=== PATIENT | male | born 1995 | race African-American/Black ===

== ENCOUNTER 2017-04-07 10:46 | Emergency (ER) | payer SELFPAY ==
[2017-04-07] VITALS (8 sets, daily range): BP systolic 131–166; BP diastolic 76–88
[~2017-04-07] VITALS: Ht 175.3 cm; Wt 81.6 kg
--- NOTE | 2017-04-07 10:43 | Emergency Room Report ---
History of Present Illness General Source: Patient Present Illness HPI This is a 21-year-old male presented after bilateral hand numbness and chest discomfort. Patient had recently used methamphetamine. He reports having some difficulty with itching and sensation in both hands. Patient was noted be hyperventilating by EMS. Patient states last use was last night. He denies any numbness or weakness to his legs. Allergies: Coded Allergies: No Known Allergies (Unverified , 04/07/17) Patient History Past Medical History: see triage record Reviewed Nursing Documentation: PMH: Agreed, PSxH: Agreed Review of Systems All Other Systems: negative except mentioned in HPI Physical Exam Sp02 EP Interpretation: reviewed, normal General Appearance: normal inspection, well appearing, no apparent distress, alert, GCS 15, other - hyperventilating Head: atraumatic ENT: normal ENT inspection, hearing grossly normal, normal voice Neck: normal inspection, full range of motion, supple, no bony tend Respiratory: normal inspection, lungs clear, normal breath sounds, no respiratory distress, no retraction, no wheezing Cardiovascular #1: no edema, tachycardia Gastrointestinal: normal inspection, normal bowel sounds, non tender, soft, no guarding, no hernia Genitourinary: no CVA tenderness Musculoskeletal: normal inspection, back normal, normal range of motion Neurologic: normal inspection, alert, oriented x3, responsive, defense attorney III-XII nml as tested, speech normal Psychiatric: normal inspection, judgement/insight normal, mood/affect normal Skin: normal inspection, normal color, no rash Medical Decision Making Diagnostic Impression: Primary Impression: Anxiety Additional Impression: Substance abuse ER Course Patient presented for bilateral arm numbness. Differential diagnosis included was not limited to hyperventilation, aortic dissection, myocardial infarction and among others Because of complexity of patient's case laboratory testing and imaging studies were ordered.Patient was given IV Ativan for anxiety and agitation. Patient given Ativan and Haldol for anxiety. The patient was noted to have a recent use of methamphetamine. EKG interpreted by me showed sinus tachycardia without acute ST or T wave changes. The patient was given IV fluids. He was noted to have improvement in his tachycardia as well as his anxiety after medications. The patient is advised to follow up with primary care doctor in 1-2 days. Patient is advised to return if any worsening condition or if any changes in status that are concerning. Labs Test 04/07/17 10:53 04/07/17 11:30 White Blood Count 10.2 K/UL (4.8-10.8) Red Blood Count 5.29 M/UL (4.70-6.10) Hemoglobin 14.0 G/DL (14.2-18.0) Hematocrit 43.4 % (42.0-52.0) Mean Corpuscular Volume 82 FL (80-99) Mean Corpuscular Hemoglobin 26.4 PG (27.0-31.0) Mean Corpuscular Hemoglobin Concent 32.2 G/DL (32.0-36.0) Red Cell Distribution Width 11.7 % (11.6-14.8) Platelet Count 208 K/UL (150-450) Mean Platelet Volume 8.2 FL (6.5-10.1) Neutrophils (%) (Auto) 69.8 % (45.0-75.0) Lymphocytes (%) (Auto) 16.6 % (20.0-45.0) Monocytes (%) (Auto) 12.1 % (1.0-10.0) Eosinophils (%) (Auto) 0.1 % (0.0-3.0) Basophils (%) (Auto) 1.4 % (0.0-2.0) Sodium Level 138 MMOL/L (136-145) Potassium Level 3.0 MMOL/L (3.5-5.1) Chloride Level 100 MMOL/L (98-107) Carbon Dioxide Level 20 MMOL/L (21-32) Anion Gap 18 mmol/L (5-15) Blood Urea Nitrogen 16 mg/dL (7-18) Creatinine 1.4 MG/DL (0.55-1.30) Estimat Glomerular Filtration Rate > 60 mL/min (>60) Glucose Level 112 MG/DL (74-106) Calcium Level 10.0 MG/DL (8.5-10.1) Total Bilirubin 1.9 MG/DL (0.2-1.0) Direct Bilirubin 0.3 MG/DL (0.0-0.3) Aspartate Amino Transf (AST/SGOT) 34 U/L (15-37) Alanine Aminotransferase (ALT/SGPT) 23 U/L (12-78) Alkaline Phosphatase 55 U/L (46-116) Troponin I < 0.017 ng/mL (0.000-0.056) Total Protein 8.3 G/DL (6.4-8.2) Albumin 4.4 G/DL (3.4-5.0) Globulin 3.9 g/dL Albumin/Globulin Ratio 1.1 (1.0-2.7) Salicylates Level < 0.2 ug/mL (2.8-20) Acetaminophen Level < 2 MCG/ML (10-30) Serum Alcohol < 3 mg/dL Urine Opiates Screen Negative (NEGATIVE) Urine Barbiturates Screen Negative (NEGATIVE) Phencyclidine (PCP) Screen Negative (NEGATIVE) Urine Amphetamines Screen Positive (NEGATIVE) Urine Benzodiazepines Screen Negative (NEGATIVE) Urine Cocaine Screen Negative (NEGATIVE) Urine Marijuana (THC) Screen Positive (NEGATIVE) EKG Diagnostic Results Rate: tachycardiac Rhythm: NSR ST Segments: no acute changes Status: improved Disposition: HOME, SELF-CARE Condition: Stable [place] Apr 07, 2017 10:43
[~2017-04-07 10:46] MED LIST: LORazepam Inj 2mg/ml 1ml IV ONE; NKM; Sodium Chloride 500ML 500 ML IV ONE
[2017-04-07] MEDS ORDERED: Tubing IV Cassette IV ONE (10:55)
[2017-04-07 11:12] LABS: BASOPHILS % (AUTO) 1.4 % (0.0-2.0); EOSINOPHILS % (AUTO) 0.1 % (0.0-3.0); LYMPHOCYTES % (AUTO) 16.6 % (20.0-45.0); MEAN CORPUSCULAR HEMOGLOBIN 26.4 PG (27.0-31.0); MEAN CORPUSCULAR HGB CONC 32.2 G/DL (32.0-36.0); MEAN CORPUSCULAR VOLUME 82 FL (80-99); MEAN PLATELET VOLUME 8.2 FL (6.5-10.1); MONOCYTES % (AUTO) 12.1 % (1.0-10.0); NEUTROPHILS % (AUTO) 69.8 % (45.0-75.0); PLATELET COUNT 208 K/UL (150-450); RED BLOOD COUNT 5.29 M/UL (4.70-6.10); RED CELL DISTRIBUTION WIDTH 11.7 % (11.6-14.8); WHITE BLOOD COUNT 10.2 K/UL (4.8-10.8)
[2017-04-07 11:28] LABS: ANION GAP 18 mmol/L (5-15); CARBON DIOXIDE 20 MMOL/L (21-32); CHLORIDE 100 MMOL/L (98-107); CREATININE 1.4 MG/DL (0.55-1.30); GLOMERULAR FILTRATION RATE > 60 mL/min (>60); SODIUM 138 MMOL/L (136-145)
[2017-04-07] MEDS ORDERED: LORazepam Inj 2mg/ml 1ml IV ONE (11:30)
[2017-04-07 11:35] LABS: ALANINE AMINOTRANSFERASE 23 U/L (12-78); ALBUMIN/GLOBULIN RATIO 1.1 (1.0-2.7); ALCOHOL < 3 mg/dL; ASPARTATE AMINO TRANSFERASE 34 U/L (15-37); TOTAL PROTEIN 8.3 G/DL (6.4-8.2)
[2017-04-07 11:36] LABS: ACETAMINOPHEN < 2 MCG/ML (10-30); BILIRUBIN,DIRECT 0.3 MG/DL (0.0-0.3)
[2017-04-07] MEDS ORDERED: Haloperidol 5mg/ml Inj IM ONE (13:15)
--- NOTE | 2017-04-15 17:24 | Cardiology Report ---
APPROVED REPORT EKG Measurement Heart [id number] Normal sinus rhythm Normal ECG
== END 2017-04-07 19:14 | disposition home or self-care (01) ==
LOC: EDBD 10:46 → EMR 11:27
DX: F41.9 Anxiety disorder, unspecified (principal); F15.10 Other stimulant abuse, uncomplicated; R07.89 Other chest pain; R20.0 Anesthesia of skin
CPT/HCPCS: 36415; 80053; 80307; 82248; 84484; 85025; 93005; 96361; 96372; 96374; 99284; G0480; J1630; J7040; 80329; J8499

== ENCOUNTER 2017-04-08 17:04 | Emergency (ER) | payer OTHER ==
[~2017-04-08] VITALS: Ht 185.4 cm; Wt 86.2 kg
[~2017-04-08 17:04] MED LIST changes: -LORazepam Inj 2mg/ml 1ml IV ONE; -Sodium Chloride 500ML 500 ML IV ONE
[2017-04-08 17:09] VITALS: BP 127/83
--- NOTE | 2017-04-08 17:27 | Emergency Room Report ---
History of Present Illness General Chief Complaint: Chest Pain Source: Patient Present Illness HPI 21-year-old male with no sig pmhx, p/w chest pain for 3. Chest pain started while after doing methamphetamine (last used 3 days ago). Localized to substernal area, no radiation to back or other areas, sharp in nature, gradual in onset, lasts a few seconds. 2-3 episodes/DAY. Occurred on exertion and rest. Denies SOB. Currently denies palpitations, diaphoresis, n/v. Patient is currently chest pain-free This is the first occurrence of chest pain. Denies fever, chills, cough, abd pain, recent viral illness. Denies trauma. Denies cardiac history, or family history of cardiac disease at a young age. Denies history of PE/DVT Allergies: Coded Allergies: No Known Allergies (Unverified , 04/07/17) Patient History Past Medical History: see triage record Past Surgical History: none Pertinent Family History: none Reviewed Nursing Documentation: PMH: Agreed, PSxH: Agreed Nursing Documentation-PMH Past Medical History: No History, Except For Review of Systems All Other Systems: negative except mentioned in HPI Physical Exam Vital Signs Date Time Temp Pulse Resp B/P (MAP) Pulse Ox O2 Delivery O2 Flow Rate FiO2 04/08/17 16:59 98.4 101 16 125/83 98 Room Air Sp02 EP Interpretation: reviewed, normal General Appearance: normal inspection, well appearing, no apparent distress, alert, GCS 15, non-toxic Head: normocephalic, atraumatic Eyes: bilateral eye normal inspection, bilateral eye PERRL, bilateral eye EOMI ENT: normal ENT inspection, normal pharynx, normal voice, moist mucus membranes Neck: normal inspection, full range of motion, supple Respiratory: normal inspection, lungs clear, normal breath sounds, no respiratory distress, no retraction, no wheezing, speaking full sentences, chest symmetrical Cardiovascular #1: normal inspection, regular rate, rhythm, no edema, normal capillary refill Cardiovascular #2: 2+ radial (R), 2+ radial (L) Gastrointestinal: normal inspection, non tender, soft, non-distended, no guarding Musculoskeletal: normal inspection, back normal, normal range of motion, non- tender Neurologic: normal inspection, alert, oriented x3, responsive, motor strength/ tone normal, sensory intact, normal gait, speech normal Psychiatric: normal inspection, judgement/insight normal, memory normal Skin: normal inspection, normal color, no rash, warm/dry, well hydrated, normal turgor Medical Decision Making Diagnostic Impression: Primary Impression: Chest pain Additional Impression: Methamphetamine use ER Course 21-year-old male with no sig pmhx p/w chest pain DDX: Musculoskeletal CP/costochondritis vs. pneumothorax vs. gastritis/GERD versus drug-induced PE less likely given history and physical examination, not hypoxic/tachycardic, no risk factors, PERC negative. ACS less likely given age/history Plan: NSAIDs, EKG, CXR Anticipate DC home as patient appears clinically well. And is chest pain-free ER course: Patient was treated NSAIDs with improvement of pain. Patient remains well appearing in ED. Disposition: Patient will be discharged to home Strict precautions discussed with patient on when to emergently return to the ED : this includes worsening/severe chest pain, palpitations, shortness of breath, syncopal episodes, fever or chills, which may indicate severe illness. Patient verbalized understanding. Patient instructed to follow up with their PMD within the next 2 days. Patient agrees with plan. Please note that this Emergency Department Report was dictated using [employer] welt end technology software, occasionally this can lead to erroneous entry secondary to interpretation by the dictation equipment. EKG Diagnostic Results EP Interpretation: Yes Rate: normal Rhythm: NSR ST Segments: No acute changes ASA given to patient: no Rhythm Strip EP Interpretation: Yes Rate: 83 Rhythm: NSR, no PVCs, no ectopy Chest X-ray CXR: Ordered: Yes 1 view Indication: Chest pain EP interpretation: Yes Interpretation: No consolidation, no effusion, no PTX, no acute cardiopulmonary disease Impression: No acute disease Electronically signed by Kina Sanchez MD Last Vital Signs Date Time Temp Pulse Resp B/P (MAP) Pulse Ox O2 Delivery O2 Flow Rate FiO2 04/08/17 17:11 88 20 Room Air 04/08/17 17:09 98.4 127/83 100 Disposition: HOME, SELF-CARE Condition: Improved Patient Instructions: Nonspecific Chest Pain Kina Sanchez M.D. Apr 08, 2017 17:27
[2017-04-08 18:00] VITALS: BP 135/73
[2017-04-09] MEDS ORDERED: ALPRAZOLAM0.25 MG ORAL (06:00)
--- NOTE | 2017-04-09 10:04 | Diagnostic Imaging Report ---
Indication: PAIN Technique: XRAY CHEST 1 V Comparison: None. Findings: The cardiomediastinal silhouette is normal. The lungs are clear. There is no evidence of pleural fluid. The bones are unremarkable. Impression: Normal chest.
--- NOTE | 2017-04-18 17:58 | Cardiology Report ---
APPROVED REPORT EKG Measurement Heart [id number] Normal sinus rhythm Nonspecific T wave abnormality Abnormal ECG
== END 2017-04-08 18:00 | disposition home or self-care (01) ==
LOC: EDBD 17:04 → EMR 17:30
DX: R07.89 Other chest pain (principal); F15.90 Other stimulant use, unspecified, uncomplicated
CPT/HCPCS: 71010; 93005; 99283

== ENCOUNTER 2017-04-09 04:56 | Emergency (ER) | payer SELFPAY ==
[~2017-04-09] VITALS: Ht 175.3 cm; Wt 83.9 kg
[2017-04-09 04:56] VITALS: BP 138/71
[2017-04-09] MEDS ORDERED: LORazepam 1mg tab ORAL ONE (05:00)
[2017-04-09] MEDS ORDERED: ALPRAZOLAM0.25 MG ORAL (06:00)
[2017-04-09 06:03] VITALS: BP 138/71
--- NOTE | 2017-04-09 06:16 | Emergency Room Report ---
History of Present Illness General Chief Complaint: Substance Abuse Source: Patient Present Illness HPI 21-year-old male presents ED for evaluation. Patient brought in by EMS. Patient states he feels very anxious and is unable to sleep. States he used methamphetamines 3 days ago. He was seen in the ER twice since he used meth. States he feels very anxious. Denies any chest pain or shortness of breath. Denies any other drug use. Denies any suicidal or homicidal ideation. No other aggravating relieving factors. Denies any other associated symptoms Allergies: Coded Allergies: No Known Allergies (Unverified , 04/07/17) Patient History Past Medical History: none Past Surgical History: none Pertinent Family History: none Social History: Denies: smoking, alcohol use, drug use Immunizations: UTD Reviewed Nursing Documentation: PMH: Agreed, PSxH: Agreed Nursing Documentation-PMH Past Medical History: No Stated History Review of Systems All Other Systems: negative except mentioned in HPI Physical Exam Vital Signs Date Time Temp Pulse Resp B/P (MAP) Pulse Ox O2 Delivery O2 Flow Rate FiO2 04/09/17 04:52 92 14 138/71 100 Room Air 04/09/17 04:56 98.2 Sp02 EP Interpretation: reviewed, normal General Appearance: no apparent distress, alert, GCS 15, non-toxic Head: normocephalic, atraumatic Eyes: bilateral eye normal inspection, bilateral eye PERRL ENT: hearing grossly normal, normal pharynx, no angioedema, normal voice Neck: full range of motion, supple/symm/no masses Respiratory: chest non-tender, lungs clear, normal breath sounds, speaking full sentences Cardiovascular #1: regular rate, rhythm, no edema Cardiovascular #2: 2+ carotid (R), 2+ carotid (L), 2+ radial (R), 2+ radial (L) , 2+ dorsalis pedis (R), 2+ dorsalis pedis (L) Gastrointestinal: normal bowel sounds, non tender, soft, non-distended, no guarding, no rebound Rectal: deferred Genitourinary: normal inspection, no CVA tenderness Musculoskeletal: back normal, gait/station normal, normal range of motion, non- tender Neurologic: alert, oriented x3, responsive, motor strength/tone normal, sensory intact, speech normal Psychiatric: judgement/insight normal, memory normal, anxious Reflexes: 3+ bicep (R), 3+ bicep (L), 3+ tricep (R), 3+ tricep (L), 3+ knee (R) , 3+ knee (L) Skin: normal color, no rash, warm/dry, well hydrated Lymphatic: no adenopathy Medical Decision Making Diagnostic Impression: Primary Impression: Substance abuse Additional Impression: Anxiety ER Course Hospital Course 21-year-old male presents to ED feeling anxious after methamphetamine use Clinical course Patient placed on stretcher. After initial history and physical I reviewed EMR. Patient had been here twice since he used methamphetamines. On the first visit he did have blood work which was unremarkable. I see no reason to repeat blood work at this time. patient showing no signs of distress with stable vitals Patient given Ativan in ED. Feeling better and wishes to be discharged Diagnosis - substance abuse, anxiety stable and discharged to home with Rx Xanax. Followup with PMD. Return to ED if symptoms recur or worsen Last Vital Signs Date Time Temp Pulse Resp B/P (MAP) Pulse Ox O2 Delivery O2 Flow Rate FiO2 04/09/17 06:03 98.2 101 18 138/71 99 Room Air Status: improved Disposition: HOME, SELF-CARE Condition: Stable Scripts Alprazolam* (XANAX*) 0.25 Mg Tablet 0.25 MG ORAL TID Y for For Anxiety, #5 TAB Prov: LOYD RICHMOND M.D. 04/09/17 Referrals: NOT CHOSEN IPA/,REFERRING (PCP) Patient Instructions: Stimulant Use Disorder-Methamphetamines LOYD RICHMOND M.D. Apr 09, 2017 06:16
== END 2017-04-09 06:03 | disposition home or self-care (01) ==
LOC: EDBD 04:56 → EMR 05:05
DX: F41.9 Anxiety disorder, unspecified (principal); F15.10 Other stimulant abuse, uncomplicated
CPT/HCPCS: 99283

== ENCOUNTER 2017-05-23 16:51 | Emergency (ER) | payer SELFPAY ==
[~2017-05-23 16:51] MED LIST changes: +ALPRAZOLAM0.25 MG ORAL
--- NOTE | 2017-05-23 17:19 | Emergency Room Report ---
History of Present Illness General Source: EMS Present Illness HPI The patient is a 24 old male brought in by EMS for possible wrist injury. He told them that he was playing basketball and fell onto his wrist. The patient appeared to be agitated somewhat and left without being seen Medical Decision Making PA Attestation Dr. Peoples is my supervising physician. Patient management was discussed with my supervising physician ER Course The patient is a 24 old male brought in by EMS for possible wrist injury. He told them that he was playing basketball and fell onto his wrist. The patient appeared to be agitated somewhat and left without being seen eloped from waiting room Status: unchanged Disposition: LEFT W/OUT BEING SEEN Condition: Unknown DEE LOYOLA May 23, 2017 17:19
[2017-05-24] MEDS ORDERED: IBUPROFEN600 MG ORAL (03:54)
== END 2017-05-23 17:20 | disposition left against medical advice (07) ==
LOC: EDBD → EMR 17:19 → MERGE 17:19 → EMR 17:20
DX: S62.102A Fracture of unspecified carpal bone, left wrist, initial encounter for closed fracture (principal); Z53.21 Procedure and treatment not carried out due to patient leaving prior to being seen by health care provider

== ENCOUNTER 2017-05-24 03:05 | Emergency (ER) | payer SELFPAY ==
[~2017-05-24] VITALS: Ht 182.9 cm; Wt 88.5 kg
[2017-05-24 03:06] VITALS: BP 148/93
[2017-05-24] MEDS ORDERED: IBUPROFEN600 MG ORAL (03:54)
[2017-05-24 04:02] VITALS: BP 148/93
--- NOTE | 2017-05-24 08:43 | Emergency Room Report ---
History of Present Illness General Chief Complaint: Upper Extremity Injury Source: Patient, EMS Present Illness Allergies: Coded Allergies: No Known Allergies (Unverified , 04/07/17) Nursing Documentation-H Past Medical History: No History, Except For History Of Psychiatric Problem: Yes - Anxiety, Depression Physical Exam Vital Signs Date Time Temp Pulse Resp B/P (MAP) Pulse Ox O2 Delivery O2 Flow Rate FiO2 05/24/17 03:06 98.1 73 16 148/93 98 Room Air Medical Decision Making Diagnostic Impression: Primary Impression: Wrist injury ER Course Please note that we received a phone call this morning regarding wrist fracture/ perilunate dislocation Patient was called at the phone number provided however there was no response We did attempt to leave a message however there was no possibility of leaving a message Patient was called onto further occasions And at this time had x-ray discrepancy form mailed for further attempts of contact Last Vital Signs Date Time Temp Pulse Resp B/P (MAP) Pulse Ox O2 Delivery O2 Flow Rate FiO2 05/24/17 04:02 98.1 76 16 148/93 98 Room Air Disposition: HOME, SELF-CARE Condition: Stable Scripts Ibuprofen* (MOTRIN*) 600 Mg Tablet 600 MG ORAL Q8H Y for For Pain, #30 TAB 0 Refills Prov: LOYD RICHMOND M.D. 05/24/17 Patient Instructions: Wrist Pain, [id number] BRANDIE CHILDERS D.O. May 24, 2017 08:43
--- NOTE | 2017-05-25 08:10 | Emergency Room Report ---
History of Present Illness General Chief Complaint: Upper Extremity Injury Source: Patient, EMS Present Illness HPI 21-year-old male presents to ED for evaluation. Patient brought in by EMS complaining of right wrist pain. Patient states that he tried to dunk the basketball and hurt his wrist yesterday. He states he brought in by EMS yesterday here but left prior to being seen. Patient states he is here because the wrist is hurting and swelling. Pain is throbbing, 8/10, nonradiating. Denies any other injuries. No other aggravating or leading factors. Denies any other associated symptoms Allergies: Coded Allergies: No Known Allergies (Unverified , 04/07/17) Patient History Past Medical History: psych hx Past Surgical History: none Pertinent Family History: none Social History: Reports: drug use, Denies: smoking, alcohol use Immunizations: UTD Reviewed Nursing Documentation: PMH: Agreed, PSxH: Agreed Nursing Documentation-PMH Past Medical History: No History, Except For History Of Psychiatric Problem: Yes - Anxiety, Depression Review of Systems All Other Systems: negative except mentioned in HPI Physical Exam Vital Signs Date Time Temp Pulse Resp B/P (MAP) Pulse Ox O2 Delivery O2 Flow Rate FiO2 05/24/17 03:06 98.1 73 16 148/93 98 Room Air Sp02 EP Interpretation: reviewed, normal General Appearance: no apparent distress, alert, GCS 15, non-toxic Head: normocephalic Eyes: bilateral eye normal inspection, bilateral eye PERRL ENT: normal ENT inspection Neck: normal inspection Respiratory: normal inspection Cardiovascular #1: normal inspection Gastrointestinal: normal inspection Rectal: deferred Genitourinary: no CVA tenderness Musculoskeletal: swelling - R wrist Neurologic: alert, oriented x3, responsive, motor strength/tone normal, sensory intact, speech normal Psychiatric: normal inspection Skin: normal inspection Lymphatic: normal inspection Procedures Splinting Splinting : Consent: Verbal Pre-Made Type: velcro Splint: wrist Pre-Proc Neuro Vasc Exam: normal Post-Proc Neuro Vasc Exam: normal Patient Tolerated: Well Complications: None Medical Decision Making Diagnostic Impression: Primary Impression: Wrist injury Qualified Codes: S69.91XA - Unspecified injury of right wrist, hand and finger (s), initial encounter ER Course Hospital Course 21-year-old M presents to ED complaining of R wrist pain/swelling. Differential diagnoses include: Fracture, dislocation, sprain, contusion Clinical course Patient placed on stretcher. After initial history and physical, I ordered Xrays of R hand/wrist I did not identify an obvious fracture however given the swelling and pain to place a wrist splint Patient states he came earlier yesterday but there is no medical records for that visit. Patient states he used a different name Gray Alfaro. 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 apply ice, keep elevated. weight bear as tolerated. Followup with PMD. Return to ED if symptoms recur or worsen Last Vital Signs Date Time Temp Pulse Resp B/P (MAP) Pulse Ox O2 Delivery O2 Flow Rate FiO2 05/24/17 04:02 98.1 76 16 148/93 98 Room Air Status: improved Disposition: HOME, SELF-CARE Condition: Stable Scripts Ibuprofen* (MOTRIN*) 600 Mg Tablet 600 MG ORAL Q8H Y for For Pain, #30 TAB 0 Refills Prov: LOYD RICHMOND M.D. 05/24/17 Patient Instructions: Wrist Pain, [id number] LOYD RICHMOND M.D. May 25, 2017 08:10
--- NOTE | 2017-05-26 16:05 | Diagnostic Imaging Report ---
Indication: Right hand pain Technique: Right hand 3 views Comparison: None Findings: There is an apparent perilunate dislocation with dorsal displacement of the capitate from the lunate. Soft tissue swelling of the wrist is seen. Small carpal osseous fragments or avulsions cannot be excluded. Impression: Perilunate dislocation with dorsal displacement of the capitate and midcarpal row from the lunate. Soft tissue swelling. CT may be obtained for further characterization. Findings discussed with Dr. Gonzalez at 0820 hours by phone.
== END 2017-05-24 04:02 | disposition home or self-care (01) ==
LOC: EDBD → EDUNIT# 03:05 → EDBD 03:05 → EMR 03:18
DX: S69.91XA Unspecified injury of right wrist, hand and finger(s), initial encounter (principal); X58.XXXA Exposure to other specified factors, initial encounter; Y93.67 Activity, basketball; Y99.9 Unspecified external cause status; M25.531 Pain in right wrist; F41.8 Other specified anxiety disorders; F32.9 Major depressive disorder, single episode, unspecified
CPT/HCPCS: 99283

== ENCOUNTER 2017-06-21 16:38 | Emergency (ER) | payer OTHER ==
[~2017-06-21] VITALS: Ht 182.9 cm; Wt 81.6 kg
[~2017-06-21 16:38] MED LIST changes: +IBUPROFEN600 MG ORAL
--- NOTE | 2017-06-21 17:21 | Emergency Room Report ---
History of Present Illness General Chief Complaint: Upper Extremity Injury Source: Patient Present Illness HPI 21 yo male patient presents to ER complaining of right wrist pain. Patient was previously seen in ER in May for similar complaint. Patient reports he has not been wearing his wrist splint. Patient states he did not followup with PCP or primary care provider. Patient reports pain with movement. Patient reports being told by physician "at [facility]" to report to ER for repeat x -ray. Patient is a poor historian. Patient denies fever, chest pain, SOB. Patient was seen in ER for wrist pain in May 2017; following discharged patient was previously attempted to be called by ER doctor to inform of dislocation; at that time ER physician was unable to make contact with patient by phone. Allergies: Coded Allergies: No Known Allergies (Unverified , 04/07/17) Patient History Past Medical History: see triage record Pertinent Family History: unable to obtain Social History: Reports: smoking Reviewed Nursing Documentation: PMH: Agreed, PSxH: Agreed Nursing Documentation-PMH Past Medical History: No Stated History Review of Systems All Other Systems: negative except mentioned in HPI Physical Exam Vital Signs Date Time Temp Pulse Resp B/P (MAP) Pulse Ox O2 Delivery O2 Flow Rate FiO2 06/21/17 16:55 98.1 76 19 139/74 96 Room Air Sp02 EP Interpretation: reviewed, normal General Appearance: no apparent distress, alert, GCS 15, non-toxic Head: normocephalic, atraumatic Eyes: bilateral eye normal inspection, bilateral eye PERRL ENT: hearing grossly normal, normal pharynx, no angioedema, normal voice Neck: full range of motion, supple/symm/no masses Respiratory: chest non-tender, lungs clear, normal breath sounds, speaking full sentences Cardiovascular #1: regular rate, rhythm, no edema Musculoskeletal: back normal, digits/nails normal, gait/station normal, non- tender, decreased range of motion - right wrist extension and flexion, swelling - right wrist, other - deformity noted on volar aspect of right wrist, tender - right wrist Neurologic: alert, oriented x3, responsive, motor strength/tone normal, sensory intact, speech normal Psychiatric: depressed affect Skin: normal color, no rash, warm/dry, well hydrated Medical Decision Making PA Attestation Dr. Sanchez is my supervising Physician whom patient management has been discussed with. Diagnostic Impression: Primary Impression: Closed perilunate dislocation ER Course Pt. presents to the ED c/o right wrist pain. Ddx considered but are not limited to fracture, sprain, strain, contusion, dislocation. Vital signs: are WNL, pt. is afebrile ORDERS: An X-ray of the right wrist was ordered. ED INTERVENTIONS: Motrin provided for pain. Right wrist splinted. The affected wrist was checked afterwards by me showing good alignment and support with distal neurovascular functioning intact. Patient instructed not to remove wrist splint. Patient reports understanding and agreement. 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 Patient sleeping, in no acute distress. 0700PM XRAY results: Evidence of right wrist fracture-dislocation with associated soft tissue swelling about the wrist. Moderately displaced fracture traverses the waist of scaphoid. Dorsal perilunate carpal dislocation. Discuss results of x-ray with patient. Consult with Dr. Sanchez who spoke with orthopedic physician senior online marketing manager; orthopedist states not to reduce dislocation in ER, patient will require surgery with ortho hand specialist. Patient instructed to follow with orthopedic hand specialist in 1-2 days [place] [facility] [place] Patient provided with contact information and directions for orthopedic doctors and clinics. Patient reports understanding and agreement to treatment plan. States he will followup with orthopedist today and tomorrow to schedule appointment. DISCHARGE: -Rx provided for Ibuprofen for pain symptoms. At this time pt. is stable for d/c to home. Will provide printed patient care instructions, and any necessary prescriptions. Care plan and follow up instructions have been discussed with the patient prior to discharge. Patient instructed on RICE method: rest, ice, compression, elevation. Patient instructed to NWB. Take medications as directed. Patient questions asked and answered. ER precautions given, patient instructed to return to ER immediately for any new or worsening of symptoms. Other X-Ray Diagnostic Results Other X-Ray Diagnostic Results : X-Ray ordered: Right wrist # of Views/Limited Vs Complete: 3 View Indication: Pain EP Interpretation: Yes PA Xray: Interpretation reviewed, by supervising MD, and agrees with findings. Interpretation: no soft tissue swelling Impression: Other - Evidence of right wrist fracture-dislocation with associated soft tissue swelling about the wrist. Moderately displaced fracture traverses the waist of scaphoid. Dorsal perilunate carpal dislocation. PA Scribe Text Benjamín Frausto PA-C Last Vital Signs Date Time Temp Pulse Resp B/P (MAP) Pulse Ox O2 Delivery O2 Flow Rate FiO2 06/21/17 16:55 98.1 76 19 139/74 96 Room Air Disposition: HOME, SELF-CARE Condition: Stable Scripts Ibuprofen* (MOTRIN*) 600 Mg Tablet 600 MG ORAL Q8H Y for For Pain, #30 TAB 0 Refills Prov: Luis Frausto 06/21/17 Patient Instructions: Wrist Dislocation, Lunate-[facility]Med Additional Instructions: Patient instructed to follow up with hand orthopedics in 1-2 days. Injury requires surgery. Wear splint. Patient instructed on RICE method: rest, ice, compression, elevation. Patient instructed to WBAT. Take medications as directed. Patient questions asked and answered. ER precautions given, patient instructed to return to ER immediately for any new or worsening of symptoms. Dr. Samaria Floyd [address], [place], [place] [id number] [facility] [address] [place] [address] Luis Frausto Jun 21, 2017 17:21
[2017-06-21] MEDS ORDERED: IBUPROFEN600 MG ORAL (17:43)
[2017-06-21 21:00] VITALS: BP 126/78
[2017-06-21 21:30] VITALS: BP 126/78
--- NOTE | 2017-06-22 11:49 | Diagnostic Imaging Report ---
Clinical Indication:Reason For Exam: PAIN Technique: 3 views of the left wrist Comparison: None Findings: There is a fracture of the scaphoid waist. There there is dorsal dislocation and overriding of the distal carpal row relative the proximal carpal row. No other fractures are demonstrated. Impression: Positive for scaphoid fracture Positive for dorsal carpal dislocation and overriding This agrees with the preliminary interpretation provided overnight by [facility].
== END 2017-06-21 21:30 | disposition home or self-care (01) ==
LOC: EMR 18:44 → EDBD 18:44 → EMR 21:30
DX: S63.095A Other dislocation of left wrist and hand, initial encounter (principal); X58.XXXA Exposure to other specified factors, initial encounter; Y92.9 Unspecified place or not applicable
CPT/HCPCS: 99283

== ENCOUNTER 2017-08-03 09:35 | Emergency (ER) | payer OTHER ==
[~2017-08-03] VITALS: Ht 182.9 cm; Wt 81.6 kg
--- NOTE | 2017-08-03 09:45 | Emergency Room Report ---
History of Present Illness General Chief Complaint: Pain Source: Patient, EMS Present Illness HPI Patient is a 22-year-old male brought in by EMS after increased right wrist pain. Patient had recent surgery at [facility] for scaphoid fracture and perilunate dislocation. Patient was noted to have been in a splint. He reported having some pain to the hand. He denied any recent trauma. Patient was noted to have nonintact splint. Allergies: Coded Allergies: No Known Allergies (Unverified , 04/07/17) Patient History Reviewed Nursing Documentation: PMH: Agreed, PSxH: Agreed Nursing Documentation-PMH Past Medical History: No History, Except For History Of Psychiatric Problem: Yes - ANXIETY Review of Systems All Other Systems: negative except mentioned in HPI Physical Exam Vital Signs Date Time Temp Pulse Resp B/P (MAP) Pulse Ox O2 Delivery O2 Flow Rate FiO2 08/03/17 09:33 98.6 100 16 165/80 99 Room Air 98.6 General Appearance: well appearing, no apparent distress, alert, GCS 15 Head: normocephalic, atraumatic ENT: hearing grossly normal, normal voice Neck: full range of motion, supple Respiratory: no respiratory distress, speaking full sentences Musculoskeletal: no calf tenderness, other - kwires present, postsurgical changes Neurologic: normal inspection, alert, oriented x3, normal gait Psychiatric: mood/affect normal Skin: no rash Medical Decision Making Diagnostic Impression: Primary Impression: Encounter for post surgical wound check ER Course Patient presented for wrist pain. Differential diagnosis included was not limited to fracture, dislocation, osteomyelitis, sprain among others. X-ray imaging of the right wrist was ordered.X-ray imaging read by radiologist showed postsurgical changes. Patient was advised follow-up with [facility] for recheck the due to previous surgery there. New splint was placed. Last Vital Signs Date Time Temp Pulse Resp B/P (MAP) Pulse Ox O2 Delivery O2 Flow Rate FiO2 08/03/17 09:33 98.6 100 16 165/80 99 Room Air 98.6 Status: improved Disposition: HOME, SELF-CARE Condition: Stable Scripts Ibuprofen* (MOTRIN*) 600 Mg Tablet 600 MG ORAL Q8H Y for For Pain, #30 TAB 0 Refills Prov: [place] 08/03/17 [place] Aug 03, 2017 09:45
[2017-08-03 10:52] VITALS: BP 133/79
[2017-08-03] MEDS ORDERED: IBUPROFEN600 MG ORAL (11:09)
[2017-08-03 11:10] VITALS: BP 133/79
--- NOTE | 2017-08-03 12:34 | Diagnostic Imaging Report ---
Clinical Indication:Wrist pain Technique: 3 views of the right wrist Comparison: 06/21/2017 Findings: Interim surgical repair of previously demonstrated scaphoid fracture, possibly with evidence of some healing. Previously demonstrated with a surgical screw. Surgical K wires are also seen repairing previously demonstrated volar perilunate dislocation, with improved alignment. No acute fractures. No acute-appearing alignment abnormality. Impression: No acute process Postsurgical and posttraumatic changes, as described
== END 2017-08-03 11:10 | disposition home or self-care (01) ==
LOC: EDBD 09:35 → EMR 10:05
DX: M25.531 Pain in right wrist (principal); S62.001D Unspecified fracture of navicular [scaphoid] bone of right wrist, subsequent encounter for fracture with routine healing; F41.9 Anxiety disorder, unspecified; Z98.890 Other specified postprocedural states
CPT/HCPCS: 29125; 99283